=== PATIENT | female | born 1950 | race Caucasian/White ===

== ENCOUNTER 2017-12-23 07:13 | Inpatient (IN) | payer MEDICARE, OTHER ==
[~2017-12-23] VITALS: Ht 154.9 cm; Wt 65.3 kg
[2017-12-23] VITALS (27 sets, daily range): BP systolic 79–131; BP diastolic 39–73
[~2017-12-23 07:13] MED LIST: AZOR 5-40 MG T1 EACH PO; BENICAR HCT 201 EACH; CARDURA8 MG PO; CONSTULOSE10 GM/152 PO; ESTRACE1 MG PO; HYDROCHLOROTH12.5 MG PO; IBUPROFEN 600600 M1 PO; LOVENOX SQ; NIACIN 500 MG500 M1 PO; NORCO 5-325 TA1 EACH; SIMVASTATIN40 MG PO; TRANDATE 200 M200 M1 PO; ULTRAM 50MG TAB50 MG
[2017-12-23] MEDS ORDERED: ATENOLOL 100MG100 MG PO (07:44)
[2017-12-23 07:52] LABS: ANION GAP 6 mmol/L (7-16); BUN 26 mg/dL (7-18); CALCIUM 9.1 mg/dL (8.5-10.1); CHLORIDE 102 mmol/L (98-107); CO2 31 mmol/L (21-32); CREATININE 0.9 mg/dL (0.6-1.3); GLUCOSE 109 mg/dL (70-99); POTASSIUM 3.5 mmol/L (3.5-5.1); SODIUM 139 mmol/L (136-145)
[2017-12-23 07:59] LABS: ALBUMIN 3.7 g/dL (3.4-5.0); ALKALINE PHOSPHATASE 105 U/L (46-116); SGOT 16 U/L (15-37); SGPT 17 U/L (30-65); TOTAL BILIRUBIN 0.9 mg/dL (<0.1-1.0); TOTAL PROTEIN 7.5 g/dL (6.4-8.2); TROPONIN-I LEVEL <0.06 ng/mL (<0.06)
[2017-12-23 08:00] LABS: ABSOLUTE EOSINOPHILS 0.1 thou/uL (0.0-0.7); ABSOLUTE LYMPHOCYTES 1.7 thou/uL (0.8-5.3); ABSOLUTE MONOCYTES 0.5 thou/uL (0.0-1.2); ABSOLUTE NEUTROPHILS 3.7 thou/uL (1.6-8.1); BASOPHILS 0.5 %; EOSINOPHILS 1.4 %; HEMATOCRIT 43.1 % (37.0-47.0); HEMOGLOBIN 14.2 gm/dL (12.0-15.0); LYMPHOCYTES 28.2 %; MCH 29.1 pg (26.0-34.0); MCV 88.4 fL (80.0-100.0); MONOCYTES 7.8 %; MPV 8.5 fl. (7.2-11.1); NUCLEATED RBCS 0 /100WBC; PLATELET COUNT* 241 thou/uL (150-400); POLYS 62.1 %; RBC 4.88 mil/uL (4.20-5.00); RDW-CV 13.5 % (10.5-14.5); WBC 5.9 thou/uL (4.0-11.0)
[2017-12-23 08:11] LABS: APTT 25.9 Seconds (25.0-31.3); PROTIME 10.1 Seconds (9.20-11.50)
[2017-12-23 09:38] LABS: POC CA IONIZED 4.5 mg/dL (4.5-5.3); POC CREATININE 0.8 mg/dL (0.6-1.3); POC HEMOGLOBIN 14.3 g/dL (12.0-17.0); POC POTASSIUM 3.7 mmol/L (3.5-4.9)
[2017-12-23] MEDS ORDERED: ZANTAC 150MG T150 MG PO (12:23)
[2017-12-23] MEDS ORDERED: ATENOLOL-CHLOR1 EACH PO (12:25)
[2017-12-23] MEDS ORDERED: LIPITOR 20 MG T20 M1 PO (12:26)
[2017-12-23 15:56] LABS: CHOLESTEROL 187 mg/dL (<200); HDL CHOLESTEROL 69 mg/dL (>40); LDL CHOLESTEROL 97 mg/dL (<100); TC:HDL 2.7 Ratio (Not establshd); TRIGLYCERIDE 106 mg/dL (<150); VLDL 21 mg/dL (<40)
[2017-12-23 15:57] LABS: SERUM ASSESSMENT Clear
--- NOTE | 2017-12-23 18:54 | EKG ---
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: Katherine GARZON : 1950 Requested By: Filipe Marc Order Number: [id number] MD: Ac Puentes Measurements Intervals [place] Rate: 70 P: 21 SC: 156 QRS: 15 QRSD: 92 T: 4 QT: 421 QTc: 455 Interpretive Statements Sinus rhythm Low voltage, precordial leads Compared to ECG 10/06/2011 09:58:54 Low QRS voltage now present Left ventricular hypertrophy no longer present Electronically Signed On 12-23-2017 18:53:59 CDT by Ac Puentes [email or web address] <ELECTRONICALLY SIGNED> By: Ac Puentes MD, [facility] 12/23/17 1853 Ac Puentes MD, [facility] /EPI
[2017-12-24] VITALS (18 sets, daily range): BP systolic 88–124; BP diastolic 42–71
[2017-12-24 02:10] LABS: GLYCOHEMOGLOBIN (HGB A1C) 5.4 % (4.8-5.6)
[2017-12-24 08:40] LABS: HEMATOCRIT 37.2 % (37.0-47.0); HEMOGLOBIN 12.3 gm/dL (12.0-15.0); MCH 29.3 pg (26.0-34.0); MCHC 33.2 g/dL (28.0-37.0); MCV 88.3 fL (80.0-100.0); MPV 9.3 fl. (7.2-11.1); RBC 4.21 mil/uL (4.20-5.00); RDW-CV 13.2 % (10.5-14.5); WBC 6.2 thou/uL (4.0-11.0)
[2017-12-24 09:10] LABS: ALBUMIN 2.9 g/dL (3.4-5.0); ALKALINE PHOSPHATASE 82 U/L (46-116); ANION GAP 10 mmol/L (7-16); BUN 22 mg/dL (7-18); CALCIUM 8.5 mg/dL (8.5-10.1); CHLORIDE 107 mmol/L (98-107); CHOLESTEROL 154 mg/dL (<200); CO2 25 mmol/L (21-32); CREATININE 0.8 mg/dL (0.6-1.3); GLUCOSE 91 mg/dL (70-99); HDL CHOLESTEROL 61 mg/dL (>40); LDL CHOLESTEROL 81 mg/dL (<100); POTASSIUM 3.9 mmol/L (3.5-5.1); SGOT 14 U/L (15-37); SGPT 13 U/L (30-65); SODIUM 142 mmol/L (136-145); TC:HDL 2.5 Ratio (Not establshd); TOTAL BILIRUBIN 0.5 mg/dL (<0.1-1.0); TOTAL PROTEIN 5.7 g/dL (6.4-8.2); TRIGLYCERIDE 62 mg/dL (<150); VLDL 12 mg/dL (<40)
[2017-12-24 09:15] LABS: SERUM ASSESSMENT Clear
--- NOTE | 2017-12-24 15:20 | 2DMMODE ---
[place] [address] 2 D/M-MODE ECHOCARDIOGRAM Name: GAIL CARDENAS Room: [address] IN [facility]#: [id number] Admission: 12/23/17 Attend Phys: Yancy Salinas Discharge: Date of : 54 Date of Service: 12/24/17 1519 Report #: [id number] THIS REPORT FOR: //name// APPROVED REPORT Study performed: 12/24/2017 13:19:32 EXAM: Comprehensive 2D, Doppler, and color-flow Echocardiogram Patient Location: In-Patient Room #: 006 Status: routine BSA: 1.64 HR: 62 bpm BP: 102/60 mmHg Rhythm: NSR Other Information Study Quality: Good Indications CVA/TIA Echo Enhancing Agent Indication: Rule out Shunt Agent(s) / Amount(s) Used: Agitated Saline 10 cc 2D Dimensions IVSd: 8.90 (7-11mm) LVOT Diam: 19.95 (18-24mm) LVDd: 35.37 mm PWd: 9.06 (7-11mm) Ascending Ao: 32.28 (22-36mm) LVDs: 22.74 (25-40mm) Aortic Root: 34.78 mm Volumes Left Atrial Volume (Systole) LA ESV Index: 22.40 mL/m2 Aortic Valve AoV Peak Herrera.: 0.95 m/s AO Peak Gr.: 3.59 mmHg LVOT Max P.94 mmHg AO Mean Gr.: 1.78 mmHg LVOT Mean P.44 mmHg LVOT Max V: 0.86 m/s AO V2 VTI: 19.25 cm LVOT Mean V: 0.55 m/s ERNESTINA (VTI): 3.14 cm2 LVOT V1 VTI: 19.31 [place] [address] 2 D/M-MODE ECHOCARDIOGRAM Name: GAIL CARDENAS Room: [address] IN .R.#: [id number] Admission: 12/23/17 Attend Phys: Yancy Salinas Discharge: Date of : 54 Date of Service: 12/24/17 1519 Report #: [id number] Mitral Valve E/A Ratio: 1.35 MV Decel. Time: 159.54 ms MV E Max Herrera.: 0.78 m/s MV PHT: 46.27 ms MVA (PHT): 4.76 cm2 TDI E/Lateral E': 7.09 E/Medial E': 6.50 Medial E' Herrera.: 0.12 m/s Lateral E' Herrera.: 0.11 m/s Pulmonary Valve PV Peak Herrera.: 0.66 m/s PV Peak Gr.: 1.76 mmHg Tricuspid Valve RAP Estimate: 5.00 mmHg TR Peak Gr.: 18.58 mmHg RVSP: 23.58 mmHg PA Pressure: 23.58 mmHg Left Ventricle The left ventricle is normal size. There is normal LV segmental wall motion. There is normal left ventricular wall thickness. Left ventricular systolic function is normal. LVEF is 60-65%. Transmitral Doppler flow pattern suggests impaired LV relaxation. Right Ventricle The right ventricle is normal size. The right ventricular systolic function is normal. Atria The left atrium size is normal. Interatrial septum is intact without evidence of ASD or PFO. The right atrium size is normal. Aortic Valve The aortic valve is normal in structure. No aortic regurgitation is present. There is no aortic valvular stenosis. Mitral Valve The mitral valve is normal in structure. There is no mitral valve regurgitation noted. No evidence of mitral valve stenosis. Tricuspid Valve The tricuspid valve is normal in structure. Mild tricuspid regurgitation. [place] [address] 2 D/M-MODE ECHOCARDIOGRAM Name: GAIL CARDENAS Room: [address] IN .R.#: [id number] Admission: 12/23/17 Attend Phys: Yancy Salinas Discharge: Date of : 54 Date of Service: 12/24/17 1519 Report #: [id number] Pulmonic Valve The pulmonary valve is normal in structure. Trace pulmonic regurgitation. Great Vessels The aortic root is normal in size. IVC is normal in size and collapses with >50% inspiration Pericardium There is no pericardial effusion. <Conclusion> The left ventricle is normal size. There is normal left ventricular wall thickness. Left ventricular systolic function is normal. LVEF is 60-65%. Transmitral Doppler flow pattern suggests impaired LV relaxation. Mild tricuspid regurgitation. No pulmonary hypertension. Interatrial septum is intact without evidence of ASD or PFO. <ELECTRONICALLY SIGNED> By: Norman Schultz MD, FACC 12/24/17 1519 1519 1519 Norman Schultz MD, FACC /INF
[2017-12-25 00:25] VITALS: BP 108/63
[2017-12-25 04:00] VITALS: BP 107/57
[2017-12-25] MEDS ORDERED: ATORVASTATIN CA40 MG PO (07:18)
[2017-12-25] MEDS ORDERED: ASPIRIN325 PO (07:18)
[2017-12-25 07:27] VITALS: BP 110/67
[2017-12-25 10:42] VITALS: BP 111/56
--- NOTE | 2018-01-01 09:32 | CON ---
[address] [address] CONSULTATION Name: GAIL CARDENAS Room: [address] IN M.R.#: [id number] Admission: 12/23/17 Attend Phys: Miriam Martinez Discharge: 12/25/17 Date of : 54 Report #: [id number] THIS REPORT FOR: //name// CC: Yancy Medina DATE OF SERVICE: 12/23/2017 HISTORY OF PRESENT ILLNESS: This is a 67-year-old female patient who was originally seen by me in the Emergency Room and subsequently I saw this patient in ICU. This patient is a left-handed patient who presented with weakness on the left side as well as speech difficulty. She was within 3 hours of window. This patient had a CT scan of the head done and that indicated a question of contusion, but then she had a CT perfusion that was thought to be meningioma. The CT scan was reviewed by two separate radiologists and they agreed that it was meningioma, which was calcified. Emergency Room physician talked to the patient's family about their options and after discussing all of their options, he started the patient on TPA and consulted Neurology. I saw the patient after coming to the Emergency Room and she has received part of her TPA and in fact she was doing pretty well and she was improving. She still had the facial droop and her speech was still slurred, but overall she has improved. She had no headache. REVIEW OF SYSTEMS: Indicate she had an MRI in 2017, she does not remember why she had it, she thought it was probably for the headache. She had acute onset of the above described symptoms. She had history of hypertension. That was her relevant 14-point review of system. PAST MEDICAL HISTORY: Negative for any stroke. FAMILY HISTORY: Negative for early age stroke. SOCIAL HISTORY: She had a large family. The daughter is a nurse and we talked to her. PHYSICAL EXAMINATION: The patient's examination was carried out numerous times. She initially was alert and responsive, but her memory and concentration was not very good. Subsequently when I saw her in ICU, her memory and concentration looked reasonably well. Cranial nerve examination initially had showed facial palsy on the left side, but when I saw her in the ICU, it does not look like she had any facial palsy. Rest of the neurological examination was mostly unremarkable except she was little weak on the left side when I saw her first, but subsequently when I saw her in ICU, she was doing okay. Cardiac examinations appeared noncontributory. No respiratory difficulty [place] [address] CONSULTATION Name: GAIL CARDENAS Room: [address] IN ..#: [id number] Admission: 12/23/17 Attend Phys: Miriam Martinez Discharge: 12/25/17 Date of : 54 Report #: [id number] LABORATORY DATA: Reviewed and looks like her platelet count was 241. PT, PTT was normal. CT angio and perfusion was reviewed and I reviewed the films with the radiologist. CT perfusion is pretty impressive consistent with ischemia to the right cerebral hemisphere. IMPRESSION AND PLAN: This patient's clinical presentation is consistent with ischemia to the right cerebral hemisphere. Perfusion images are very impressive. Emergency Room physician saw this patient and discussed with them indication, potential complication, and alternatives for TPA and after excluding any contraindication as I understand he started the patient on TPA. I discussed the same thing with them. I discussed with them that we do not use to give TPA to the patient's with minor deficits and it is still not an FDA approved indication, but if the patient becomes worse later on when the window has passed, then we lost the opportunity of giving TPA, that is the logic for giving TPA to patient with relatively minor deficit, but the disadvantage is the bleed and it has to be somewhat patient and the family choice. Family and the patient had decided they wanted to do the TPA. The patient appeared to be doing well. We will follow the TPA protocol. I have discussed with the patient's family that our MRI machine is broken and I discussed their options in that regard and we will get the MRI done whenever it can be accomplished. Thank you very much for this referral and if you have any questions, please feel free to contact me. More than 50 minutes of time was spent taking care of this patient today and majority of that time was spent counseling the patient and family and coordinating her care. <ELECTRONICALLY SIGNED> By: Karlo Arias MD 01/01/18 0932 1305 1916Karlo Arias MD /radha
== END 2017-12-25 12:00 | disposition home or self-care (01) | DRG 62 ==
LOC: M.ERS 07:13 → M.ICU 09:47 → M.TBA-ER 09:47 → M.ICU 10:55
PROVIDERS: Family Medicine; Psychiatry & Neurology Neuromuscular Medicine; ADMIT Internal Medicine
DX: I63.9 Cerebral infarction, unspecified (principal); G81.94 Hemiplegia, unspecified affecting left nondominant side; E44.1 Mild protein-calorie malnutrition; I48.91 Unspecified atrial fibrillation; I10 Essential (primary) hypertension; R47.81 Slurred speech; R29.810 Facial weakness; R29.712 NIHSS score 12; R47.1 Dysarthria and anarthria; E78.5 Hyperlipidemia, unspecified; D32.9 Benign neoplasm of meninges, unspecified; W18.39XA Other fall on same level, initial encounter; Z79.82 Long term (current) use of aspirin; Z79.899 Other long term (current) drug therapy; Z90.710 Acquired absence of both cervix and uterus; Z90.49 Acquired absence of other specified parts of digestive tract; Y93.89 Activity, other specified; Y92.098 Other place in other non-institutional residence as the place of occurrence of the external cause; Y99.8 Other external cause status

== ENCOUNTER → 2018-01-26 | Outpatient (CLI) | payer MEDICARE, OTHER ==
[~2018-01-26] MED LIST changes: +ASPIRIN325 PO; +ATENOLOL 100MG100 MG PO; +ATENOLOL-CHLOR1 EACH PO; +ATORVASTATIN CA40 MG PO; +LIPITOR 20 MG T20 M1 PO; +ZANTAC 150MG T150 MG PO
--- NOTE | 2018-01-28 18:49 | SLEEP ---
[address] [address] SLEEP STUDY REPORT Name: GAIL CARDENAS Room: [facility]#: [id number] Admission: 01/26/18 Attend Phys: Karlo Arias MD Discharge: Date of : 54 Report #: [id number] THIS REPORT FOR: //name// CC: Dr. Karlo Medina This study has been reviewed in its entirety by a board certified sleep specialist DATE OF SERVICE: 01/26/2018 ATTENDING PHYSICIAN: Dr. Karlo Arias. The patient is 67 years old who weighs 136 pounds and is 60 inches tall with a BMI of 26.6. The patient has a history of sleep apnea and has been on CPAP, but she has lost 70 pounds and was referred back for reevaluation. The patient's [place] score was 6. During the night study, the patient spent 409 minutes in bed and slept for 277 minutes with a low sleep efficiency of 68%. Sleep latency was 33 minutes with a REM latency of 128.9 minutes. Overall, sleep architecture showed normal stage 1 and stage 2 sleep, normal slow wave and normal REM sleep. During the night of the study, the patient had 5 obstructive apneas and 1 central apnea and no mixed apneas. There were 10 hypopneas. The patient's apnea-hypopnea index for the entire night was 3.5 per hour with a REM index of 5.7 per hour and a supine index of 8.2 per hour. EKG monitoring revealed an average heart rate of 66 beats per minute with a maximum 82 beats per minute. No sustained arrhythmias were observed. No clinically significant PLMS observed. Nocturnal oximetry study revealed an average oxygen saturation of 94% with a lowest of 86%. Only 0.5 minutes were spent in oxygen saturation of less than 89%. Due to low AHI, the patient did not meet the split night criteria for CPAP initiation. IMPRESSION: 1. No clinically significant sleep disordered breathing. The patient's AHI for the entire night was only 3.5 per hour. Mild REM sleep related hypopneas were observed. 2. No clinically [place] [address] SLEEP STUDY REPORT Name: GAIL CARDENAS Room: [facility]#: [id number] Admission: 01/26/18 Attend Phys: Karlo Arias MD Discharge: Date of : 54 Report #: [id number] 3. No clinically significant periodic limb movements during sleep. 4. Reduced sleep efficiency of 68%, resulting from sleep onset and sleep maintenance insomnia. RECOMMENDATIONS: 1. The patient did not meet the split night criteria for CPAP initiation. 2. Avoid supine sleep. 3. Avoid BATTERBOARD SETTER depressants. 4. If the patient's insomnia is chronic, then should be further evaluated and treated according to the etiology. <ELECTRONICALLY SIGNED> By: Durga Billings MD 01/28/18 9179 [id number] Freddy Billings MD /radha
== END ==
LOC: M.SLEEPLAB 19:49
DX: I63.20 Cerebral infarction due to unspecified occlusion or stenosis of unspecified precerebral arteries (principal); G47.33 Obstructive sleep apnea (adult) (pediatric); D35.00 Benign neoplasm of unspecified adrenal gland; R90.82 White matter disease, unspecified

== ENCOUNTER → 2018-08-30 | Outpatient (CLI) | payer MEDICARE, OTHER | LOC: M.RAD 08:41 | DX: Z12.31 Encounter for screening mammogram for malignant neoplasm of breast (principal) ==

== ENCOUNTER → 2021-05-24 | Outpatient (CLI) | payer MEDICARE, OTHER | LOC: M.MRI 07:04 | PROVIDERS: ATTEND Psychiatry & Neurology Neuromuscular Medicine | DX: M47.22 Other spondylosis with radiculopathy, cervical region (principal); M25.78 Osteophyte, vertebrae; G62.9 Polyneuropathy, unspecified; M35.06 Sjogren syndrome with peripheral nervous system involvement; M48.02 Spinal stenosis, cervical region ==